=== PATIENT | female | born 1955 | race Caucasian/White ===

== ENCOUNTER 2022-04-01 10:10 | Outpatient (CLI) | payer MEDICARE | END 2022-04-01 23:59 | disposition home or self-care (01) | LOC: CARD DIAG 10:10 | PROVIDERS: ATTEND Physician Assistant | DX: I08.8 Other rheumatic multiple valve diseases (principal); R06.02 Shortness of breath; R01.1 Cardiac murmur, unspecified | CPT/HCPCS: 93306 ==